=== PATIENT | female | born 1975 | race African-American/Black ===

== ENCOUNTER 2016-04-25 17:46 | Emergency (ER) | payer MEDICARE, OTHER ==
--- NOTE | ~2016-04-25 | CR63 ---
[facility] A Service of [facility] RADIOLOGY TEXT RESULTS PATIENT: SVETA ACKERMAN LOCATION: CFTX : 71 UNIT #: [id number] AGE: [address]: Jennifer Briones APRN SEX: F ORDER DR: [id number] [facility] [address] [place], [place] [address] [id number] E MR#: [id number] Acc #: [id number] NAME: SVETA ACKERMAN : 1975 SEX: F STUDY DATE/TIME: 04/25/2016 18:09 UNIT: [facility] ROOM: STUDY DESCRIPTION: CR Chest 2 View Attending Physician: Jennifer Briones A.P.R.N. Referring Physician: Eros Barrow Sr., M.D. Ordering Physician: Er [facility] Primary Care Physician: Eros Barrow Sr., M.D. MEDICAL IMAGING REPORT This report is preliminary unless electronic signature is present EXAM PA and lateral chest 04/25/2016 COMPARISON 01/13/2016 HISTORY Cough, sore throat, fever, congestion for 3 days, shortness of breath. PA and lateral views of the chest are obtained. FINDINGS The cardiovascular configuration is normal and the lungs are clear. CONCLUSION Normal chest. Dictated by... Prem Velasco M.D. THIS IS AN ELECTRONICALLY VERIFIED REPORT Prem Velasco M.D. at 04/29/2016 5:10 PM ZULY/cliff TD: 04/26/2016 08:06 JOB #: [id number] MEDICAL IMAGING REPORT Page 1 of 1 COPY
[~2016-04-25 17:46] MED LIST: IBUPROFEN800 MG PO; VIBRAMYCIN100 M1 PO
[2016-04-25 18:10] LABS: INFLUENZA A NEG (NEG); INFLUENZA B NEG (NEG)
== END 2016-04-25 18:48 | disposition home or self-care (01) ==
LOC: CFTX 17:46
PROVIDERS: Nurse Practitioner
DX: J11.83 Influenza due to unidentified influenza virus with otitis media (principal); F17.210 Nicotine dependence, cigarettes, uncomplicated
CPT/HCPCS: 71020; 84703; 87651; 87804; 94640; 99283